=== PATIENT | female | born 1980 | race Two or more races ===

== ENCOUNTER 2018-09-18 22:13 | Emergency (ER) | payer OTHER ==
[~2018-09-18] VITALS: Ht 160 cm; Wt 95.3 kg
[2018-09-19 04:49] VITALS: BP 125/89
[2018-09-19] MEDS ORDERED: METHOCARBAMOL 500 MG TAB PO ONE (05:15)
[2018-09-19] MEDS ORDERED: IBUPROFEN 800 MG TAB PO ONE (05:15)
== END 2018-09-19 06:18 | disposition home or self-care (01) ==
LOC: ER 22:17
DX: S30.1XXA Contusion of abdominal wall, initial encounter (principal); M62.838 Other muscle spasm; M54.2 Cervicalgia; V49.59XA Passenger injured in collision with other motor vehicles in traffic accident, initial encounter; Y93.89 Activity, other specified; Y99.8 Other external cause status; Y92.410 Unspecified street and highway as the place of occurrence of the external cause
CPT/HCPCS: 72125; 74176